=== PATIENT | male | born 1985 | race Native Hawaiian/Other Pacific Islander ===

== ENCOUNTER 2019-05-05 14:17 | Emergency (ER) | payer OTHER ==
[~2019-05-05] VITALS: Ht 175.3 cm; Wt 72.6 kg
[2019-05-05 14:24] VITALS: BP 129/96; TEMP 99
[2019-05-05 15:25] LABS: PLATELET COUNT 416 K/uL (142-355)
[2019-05-05 16:16] LABS: POTASSIUM 4.5 mmol/L (3.6-5.2)
[2019-05-05 16:24] LABS: PARTIAL THROMBOPLASTIN TIME 23.4 SECONDS (24.5-33.6)
== END 2019-05-05 17:30 | disposition home or self-care (01) ==
LOC: ED 14:17
PROVIDERS: Hospitalist
DX: R10.9 Unspecified abdominal pain (principal); R11.2 Nausea with vomiting, unspecified; K21.9 Gastro-esophageal reflux disease without esophagitis
CPT/HCPCS: 36415; 80053; 81000; 82150; 83690; 85027; 85610; 85730; 96360; 96375; 99284; J2405; J3490

== ENCOUNTER 2022-12-30 14:42 | Emergency (ER) | payer OTHER ==
[~2022-12-30] VITALS: Ht 175.3 cm; Wt 70.3 kg
[2022-12-30 14:53] VITALS: TEMP 98.7
[2022-12-30 15:26] LABS: PLATELET COUNT 201 K/uL (142-355)
[2022-12-30 15:29] LABS: POTASSIUM 3.9 mmol/L (3.6-5.2); SODIUM 134 mmol/L (136-145)
[2022-12-30 17:20] VITALS: BP 123/74
== END 2022-12-30 17:22 | disposition home or self-care (01) ==
LOC: ED 14:42
PROVIDERS: Family Medicine
DX: G56.31 Lesion of radial nerve, right upper limb (principal); F17.210 Nicotine dependence, cigarettes, uncomplicated
CPT/HCPCS: 80053; 84484; 85027; 93005; 99283